=== PATIENT | female | born 1980 | race American Indian/Alaskan Native ===

== ENCOUNTER 2016-07-26 08:46 | Day surgery (SDC) | payer SELFPAY ==
[2016-07-26 10:31] LABS: Bacteria,Urine 1+ /HPF (Negative); Bilirubin,Urine NEG (Negative); Blood,Urine NEG (Negative); Ketones,Urine NEG (Negative); Leukocyte Esterase,Urine NEG (Negative); Mucus,Urine FEW /HPF; Nitrite,Urine NEG (Negative); Protein,Urine <15 mg/dL mg/dL (Negative); Urobilinogen,Urine < 2.0 mg/dL (<2.0)
--- NOTE | 2016-07-26 11:41 | Cat Scan Report ---
CT OF THE ABDOMEN AND PELVIS WITHOUT CONTRAST HISTORY: Tender mass in left inguinal region, left lower quadrant abdominal pain. TECHNIQUE: Helical CT without contrast. Sagittal and coronal reformatted images. FINDINGS: No comparison. A 4.1 x 3.1 cm well circumscribed fluid density mass is identified in the left inguinal region. Internal density measures 14 Hounsfield units. This appears to represent fluid. This may represent fluid within a small left femoral/inguinal hernia sac. No aggressive mass or adenopathy is suspected on noncontrast CT. A 3.7 cm left ovarian cyst is identified. The uterus and right ovary are unremarkable. Within the limits of a noncontrast exam, the remaining abdominal and pelvic viscera are within normal limits. The liver, biliary system, pancreas, spleen, kidneys, adrenal glands and bladder are unremarkable. The bowel loops are normal caliber and wall thickness. Normal appendix. The aorta is normal caliber. No ascites, bulky adenopathy or inflammatory changes. The lung bases are clear. Normal heart size. No suspicious bony lesion. IMPRESSION: 3.7 cm left ovarian cyst. 4.1 x 3.1 cm fluid density cystic structure in the left inguinal region as outlined above. I suspect this may represent a small amount of fluid within a small hernia sac. Ultrasound may further define this structure is cystic versus solid if needed.
--- NOTE | 2016-07-26 12:49 | Ultrasound Report ---
ULTRASOUND EXTREMITY NONVASCULAR LEFT History: Left groin mass, left inguinal mass. Findings: Compared to the recent noncontrast CT abdomen and pelvis performed the same day. Ultrasound also demonstrates a predominantly cystic lesion in the left groin soft tissues measuring 3.8 x 3.2 x 4.0 cm. There is a small amount of fat echogenicity substance which is presumably omentum at the base of this cystic structure. The remainder of the fluid is anechoic. This also suggests a small inguinal hernia containing fluid. This does not appear to represent a lymph node, aggressive mass or abscess. Please correlate with the patient. Impression: Probable small left inguinal hernia containing ascitic fluid. See above.
[2016-07-26 14:19] LABS: Basophils % (Auto) 0.6 % (0.0-1.8); Eosinophils % (Auto) 0.4 % (0.0-4.3); Hematocrit 37.2 % (30.3-42.9); Hemoglobin 12.7 gm/dl (10.1-14.3); Mean Corpuscular HGB Conc 34 % (30-34); Mean Corpuscular Hemoglobin 31 pg (28-32); Mean Corpuscular Volume 91 fl (79-97); Platelet Count 231 K/mm3 (140-440); Red Blood Count 4.09 M/mm3 (3.65-5.03); Red Cell Distribution Width 13.6 % (13.2-15.2)
[2016-07-26] MEDS ORDERED: MORPHINE IV ONE (14:19)
[2016-07-26 14:32] LABS: Anion Gap 16 mmol/L; Blood Urea Nitrogen 6 mg/dL (7-17); Calcium 8.9 mg/dL (8.4-10.2); Carbon Dioxide 23 mmol/L (22-30); Chloride 101.6 mmol/L (98-107); Glucose 83 mg/dL (65-100); Potassium 3.4 mmol/L (3.6-5.0); Sodium 137 mmol/L (137-145)
[2016-07-26] MEDS ORDERED: NACL 0.9% 1000 ML 1,000 ML IV ONE (14:32)
[2016-07-26] MEDS ORDERED: XYLOCAINE 1% MPF 5 mL INFILTRATI ONE (14:33)
--- NOTE | 2016-07-26 14:38 | Admit Criteria Form ---
Admission Criteria Documentation: ABDOMINAL PAIN Clinical Indications for Admission to Inpatient Care (Place 'X' for any and all applicable criteria): Admission is indicated for ANY ONE of the following(1)(2)(3)(4)(5): [X]I. Inpatient admission required rather than observation care (Also use Abdominal Pain: Observation Care, as appropriate) because of ANY ONE of the following: [ ]a) Severe pain requiring acute inpatient management [X]b) Identification of etiology/finding that requires inpatient care (eg, aortic dissection, free air) [ ]c) Absent bowel sounds with complete ileus(6) [ ]d) Suspected toxic megacolon [ ]e) Severe electrolyte abnormalities requiring inpatient care [ ]f) High fever or infection requiring inpatient admission as indicated by ANY ONE of following(7)(8): [ ] i) Appropriate outpatient or observational care antimicrobial treatment unavailable, not effective, or not feasible [ ] ii) Documented bacteremia [ ] iii) Temperature > 104.9 degrees F (oral) [ ] iv) T >103.1 F (oral) or < 96.8 F(rectal) that does not respond to all emergency treatment measures [ ]g) Signs of intestinal obstruction [B] [ ]h) Hemodynamic instability [ ]i) IV fluid to replace significant ongoing losses (greater than 3 L/m2 per day) (12)(13) [ ]j) Percutaneous or open drainage (eg, abscess, biliary tract ) procedures [ ]k) Parenteral nutrition regimen that must be implemented on inpatient basis [ ]l) Other condition,treatment or monitoring requiring inpatient admission. [ ]II. Peritoneal signs present [X]III. Surgery needed that cannot be performed on an ambulatory basis. [ ]IV. Evaluation requires patient to not eat or drink for extended period ( eg, more than 24 hours). [ ]V. Contraindications and/or Inappropriate clinical situations for Observational Care in patients with abdominal pain, when ANY ONE of the following is required: [ ]a) Thorough evaluation is required to prevent catastrophic events due to delays in diagnosing (e.g.Mesenteric ischemia) 1,3 [ ]b) Patient with severe pathology or with chronic symptoms unlikely to improve in the ED stay (3) [ ]. General contraindications and/or Inappropriate clinical situations for Observational Care in patients with abdominal pain, when ANY ONE of the following is required: [ ]a) Prediction of prolongation of LOS based on ANY ONE of the following may be considered as a contraindication for observational care 2, 3, 4, 5, 6, 7, 8, 9, 10, 11 [ ]i) Age > 65 yrs. [ ]ii) Patient arriving by ambulance [ ]iii) Patient with high acuity [ ]iv) Patient requiring vital sign monitoring [ ]v) Patient on IV medication [ ]b) Systolic blood pressures 180mmHg 3,12 [ ]c) Patient with altered mental status including delirium and other alteration of consciousness, (3) [ ]d) Patient whose discharge disposition will be to a custodial home or rehabilitation home should not be managed in Emergency Department Observation Unit. CMS rule requires 3 days hospital stay before such placement.3,13 [ ]e) Patient with failure to thrive due to broad array of etiologies 3,16,17 [ ]f) Inability to ambulate 3,14 Extended stay beyond goal length of stay may be needed for(2)(3): [ ]a) Persistent abdominal pain with suspected intra-abdominal process [ ]b) Diagnosed condition requiring continued stay (e.g., pancreatitis, complicated diverticulitis) [ ]c) Surgery (e.g., colectomy) The original [employer] [facility] content created by [employer] has been revised. The portions of the content which have been revised are identified through the use of italic text or in bold, and [facility] has neither reviewed nor approved the modified material.All other unmodified content is copyright [employer] [facility]. Please see references footnoted in the original [employer] [facility] edition 2016 Admission Criteria Met: Yes
--- NOTE | 2016-07-26 14:53 | Emergency Department Report ---
Entered by AAYNA CASTRO, acting as scribe for BISI GÓMEZ PA. Abscess Boil HPI - HPI Chief Complaint: Skin/Abscess/Foreign Body Stated Complaint: LT SIDE ABD PAIN Duration: 1 Day Location: Other (left groin area) Severity: Moderate (6/10) History: Yes Pain (left groin), No Fever, No Purulent Drainage, No Numbness, No Foreign Body, No Previous History, No Insect Bite HPI: 35 year old female with no significant PMHx presents to the ED c/o an abscess on left groin area that began 1 year ago, worsening yesterday. Patient states the abscess started off small 1 year ago, but increased in size yesterday. Rates intermittent pain a 6/10 in severity and descibes it as tight in quality. Denies purulent drainage, erythema, numbness, tinlging, fever, chills, nausea, vomiting, and abdominal pain. Denies applying OTC topical medicine. LMP 07/04/2016. NKDA. Allergies/Adverse Reactions: Allergies Allergy/AdvReac Type Severity Reaction Status Date / Time No Known Allergies Allergy Unverified 07/26/16 08:59 ED Review of Systems ROS: Stated complaint: LT SIDE ABD PAIN Other details as noted in HPI Comment: All other systems reviewed and negative Constitutional: denies: chills, fever, other (tingling and purulent drainage) Respiratory: denies: orthopnea, shortness of breath, SOB with exertion, SOB at rest, stridor Cardiovascular: denies: chest pain, dyspnea on exertion, orthopnea Gastrointestinal: other (left suprapubic pain). denies: abdominal pain, nausea , vomiting Genitourinary: denies: urgency, dysuria, frequency, discharge Skin: other (mass on left groin area with associated pain). denies: rash Neurological: denies: numbness ED Past Medical Hx - Surgical History Additional Surgical History: appendix - Social History Smoking Status: Current Every Day Smoker Substance Use Type: None ED Abscess Boil Physical Exam - Exam General: Vital signs noted. No distress. General: Patient is alert and oriented x 3. No apparent distress, normal gait, atraumatic. Size: >5 cm (6 cm mass on left groin) Exam: Yes Tenderness (left groin area aound 6 cm mass), Yes Normal Neurologic Exam, Yes Normal Circulation, No Fluctuance, No Surrounding Cellulites/Erythema , No Lymphangitis, No Crepitation, No Heart Murmur Exam: HEAD: Head is normocephalic and atraumatic. EYES: Extraocular movements are intact. Pupils are equal, round, and reactive to light and accommodation. EARS: Symmetrical, atraumatic. NOSE: Nose symmetrical, nontender. Nares appeared normal. MOUTH:Mouth is well hydrated and without lesions. Mucous membranes are moist. NECK: Supple. No lymphadenopathy. LUNGS: Symmetrical with respiration. No wheezing, rales or crackles, CTAB. HEART: Regular rate and rhythm with normal S1/S2 present. No murmurs, rubs, or gallops. ABDOMEN: Soft, nondistended. Nontender to palpation on all quadrants. Positive bowel sounds. EXTREMITIES/MUSCULOSKELETAL: No cyanosis, clubbing, rash, lesions or edema. SKIN: Warm and dry. No lesions, ulceration or induration present. 6 cm non-erythematous mass on left groin with associated tenderness present. NEUROLOGIC: No focal deficit. PSYCHIATRIC: Mood is congruent with affect. ED Course Vital Signs 07/26/16 09:00 Temperature 98.0 F Pulse Rate 76 Respiratory 16 Rate Blood Pressure 124/78 O2 Sat by Pulse 99 Oximetry - Consultations Consultation #1: Dr. Amaro the surgeon on-call was contacted and case was discussed with him. He states he will come invalid patient and see if she is a candidate for surgery. 07/26/16 13:39 Consultation #2: Dr. Amaro came in to see and evaluate the patient with myself present. Inguinal hernia was not reducible. patient will be taken to surgery. 07/26/16 14:40 Critical care attestation.: If time is entered above; I have spent that time in minutes in the direct care of this critically ill patient, excluding procedure time. ED Medical Decision Making - Lab Data Result diagrams: 07/26/16 13:48 07/26/16 13:48 - Radiology Data Radiology results: report reviewed, image reviewed Ordering Physician: MELISA TERRELL Date of Service: 07/26/16 Procedure(s): CT abdomen pelvis wo con Accession Number(s): [id number] cc: MELISA TERRELL CT OF THE ABDOMEN AND PELVIS WITHOUT CONTRAST HISTORY: Tender mass in left inguinal region, left lower quadrant abdominal pain. TECHNIQUE: Helical CT without contrast. Sagittal and coronal reformatted images. FINDINGS: No comparison. A 4.1 x 3.1 cm well circumscribed fluid density mass is identified in the left inguinal region. Internal density measures 14 Hounsfield units. This appears to represent fluid. This may represent fluid within a small left femoral/inguinal hernia sac. No aggressive mass or adenopathy is suspected on noncontrast CT. A 3.7 cm left ovarian cyst is identified. The uterus and right ovary are unremarkable. Within the limits of a noncontrast exam, the remaining abdominal and pelvic viscera are within normal limits. The liver, biliary system, pancreas, spleen, kidneys, adrenal glands and bladder are unremarkable. The bowel loops are normal caliber and wall thickness. Normal appendix. The aorta is normal caliber. No ascites, bulky adenopathy or inflammatory changes. The lung bases are clear. Normal heart size. No suspicious bony lesion. IMPRESSION: 3.7 cm left ovarian cyst. 4.1 x 3.1 cm fluid density cystic structure in the left inguinal region as outlined above. I suspect this may represent a small amount of fluid within a small hernia sac. Ultrasound may further define this structure is cystic versus solid if needed. Transcribed By: TTR Dictated By: YINKA SAMSON JR, MD Electronically Authenticated By: YINKA SAMSON JR, MD Signed Date/Time: 07/26/16 1134 - Medical Decision Making 35-year-old female presents with a left inguinal hernia/UTI ED course: UPT, UA ordered. UPT UA shows CT of abdomen and pelvis ordered. CT impressions outlined above. Ultrasound ordered. Ultrasound shows left inguinal hernia containing a side ascitic fluid Consent is a patient. Discussed case with surgeon personal shopper Dr. Amaro who came and evaluated the patient. Patient will be taken to surgery for hernia repair. Labs ordered. IV fluid started. Patient administered 500 mg of Rocephin IV. Patient given 4 mg of morphine. Discussed findings with patient. Discussed patient she will be taken up to surgery for hernia repair. Patient verbally states she understands. Patient's will call Her to come into the ER. ED Disposition Clinical Impression: Left inguinal hernia UTI (urinary tract infection) Qualifiers: Urinary tract infection type: acute cystitis Hematuria presence: with hematuria Qualified Code(s): N30.01 - Acute cystitis with hematuria Disposition: OP ADMITTED IP TO THIS HOSP Is pt being admited?: Yes Does the pt Need Aspirin: No Condition: Stable Referrals: PRIMARY CARE,MD [Primary Care Provider] - 3-5 Days This documentation as recorded by the MATTHEW mckay JASMINE,accurately reflects the service I personally performed and the decisions made by me,BISI GÓMEZ PA.
[2016-07-26] MEDS ORDERED: ROCEPHIN 500 MG in NACL 0.9% 50 ML IV NR (15:00)
[2016-07-26] MEDS ORDERED: ZEMURON IV ONE (15:45)
[2016-07-26] MEDS ORDERED: DIPRIVAN 10 MG/ML IV ONE (15:45)
[2016-07-26] MEDS ORDERED: XYLOCAINE MPF 2% ONE (15:45)
[2016-07-26] MEDS ORDERED: DILAUDID ONE ×2 (15:45→17:21)
[2016-07-26] MEDS ORDERED: VERSED ONE (16:03)
[2016-07-26] MEDS ORDERED: ANCEF/STERILE WATER 2 GM/20 ML IV NR (16:04)
[2016-07-26] MEDS ORDERED: PEPCID IV ONE (16:04)
--- NOTE | 2016-07-26 16:05 | Anesthesia Consultation ---
Anesthesia Consult and Med Hx - Airway Anesthetic Teeth Evaluation: Good ROM Head & Neck: Adequate Mental/Hyoid Distance: Adequate Mallampati Class: Class II Intubation Access Assessment: Good - Pulmonary Exam CTA: Yes - Cardiac Exam Cardiac Exam: RRR - Pre-Operative Health Status ASA Pre-Surgery Classification: ASA2 Proposed Anesthetic Plan: General (no previous anesthesia problems) - Pulmonary Hx Smoking: Yes (2cigarettes per week)
--- NOTE | 2016-07-26 16:05 | Anesthesia Day of Surgery ---
Anesthesia Day of Surgery - Day of Surgery Patient Examined: Yes Patient H&P Reviewed: Yes Patient is NPO: Yes (coffee 09)
[2016-07-26 16:07] LABS: INR 1.04 (0.87-1.13)
[2016-07-26 16:08] LABS: Partial Thromboplastin Time 30.1 Sec. (24.2-36.6)
[2016-07-26] MEDS ORDERED: MARCAINE 0.5% 30 ML INFILTRATI ONE (16:30)
[2016-07-26] MEDS ORDERED: XYLOCAINE 1% 20 mL ONE (16:30)
[2016-07-26] MEDS ORDERED: TORADOL ONE (16:35)
[2016-07-26] MEDS ORDERED: ROBINUL ONE ×2 (16:35→16:51)
[2016-07-26] MEDS ORDERED: ZOFRAN ONE ×2 (16:35→18:46)
[2016-07-26] MEDS ORDERED: NEOSTIGMINE ONE (16:35)
[2016-07-26] MEDS ORDERED: MARCAINE 0.5% INFILTRATI ONE (16:43)
[2016-07-26] MEDS ORDERED: XYLOCAINE 1% 20 mL INFILTRATI ONE (16:43)
[2016-07-26] MEDS ORDERED: NACL 0.9% IR ONE (16:43)
[2016-07-26] MEDS ORDERED: NACL 0.9% 1000 ML 1,000 ML ONE (16:49)
--- NOTE | 2016-07-26 17:03 | Discharge Summary ---
Short Stay Discharge Plan Activity: advance as tolerated, no driving until cleared by PCP Diet: regular Wound: per your surgeon's advice Follow up with: PRIMARY CARE, [Primary Care Provider] - 3-5 Days
[2016-07-26] MEDS ORDERED: NORCO 5/325 PO PRN (17:06)
--- NOTE | 2016-07-26 17:06 | Discharge Summary ---
Short Stay Discharge Plan Follow up with: PRIMARY CARE, [Primary Care Provider] - 3-5 Days
[2016-07-26] MEDS: DILAUDID IV PRN ×4 (17:28→18:10)
--- NOTE | 2016-07-26 18:08 | Post Anesthesia Evaluation ---
- Post Anesthesia Evaluation Patient Participated: Yes Airway Patent: Yes Stable Respiratory Function: Yes Nausea/Vomiting: No Temp > 96.8F: Yes Pain Manageable: Yes Adequeate Hydration: Yes Anesthesia Complications: No
[2016-07-26] MEDS ORDERED: NORCO 10/325 PO PRN (18:24)
[2016-07-26] MEDS ORDERED: ZOFRAN IV PRN (18:52)
[2016-07-26] MEDS ORDERED: REGLAN IV PRN (19:00)
[2016-07-26 19:15] VITALS: BP 110/78
--- NOTE | 2016-07-26 22:47 | Discharge Summary ---
FINAL DIAGNOSIS: Left femoral hernia that turned out to be a left incarcerated femoral hernia, nothing within the hernial sac, just a small piece of the omentum. HOSPITAL COURSE: The patient came to the ER because of severe pain to the area with a mass and that the area about 5 x 5 x 4 cm. It was very tender, I tried to reduce that to no avail. So she came to the OR for definitive surgical intervention, where she underwent exploration of the area, excision of hernial sac, and closure of the canal between the conjoined tendon and ilioinguinal ligament interruptedly with use of 2-0 Ethibond, the same thing to the fascia and subcutaneous tissue with 2-0 Vicryl and skin with elmira. The patient was then transferred to the recovery room in good condition. She was given a prescription for [employer] (P). To see me in office in about 10 days. JOB# [id number] PHIL/ERLINDA CARR
--- NOTE | 2016-07-27 01:38 | Operative Report ---
PREOPERATIVE DIAGNOSIS: Left inguinal mass. POSTOPERATIVE DIAGNOSIS: Left femoral hernia. SURGERY: Exploration of the mass, left inguinal area with repair of femoral hernia. ANESTHESIA: General. BLOOD LOSS: Minimal. FINDINGS: The patient had a hernia in the femoral canal and deep to the ilioinguinal ligament. This measured about 5 x 5 x 5 cm. The mass is about a 1.5 x 1.5 cm. I was able to open the hernial sac and there is a small piece of the omentum stuck. This was handled with a suture ligature x 2 of 2-0 Ethibond. DESCRIPTION OF PROCEDURE: With the patient in supine position, after cleansing and draped in usual fashion, I made the incision in the left inguinal area deep subcutaneous tissue all the way down to fascia. I could see the hernial sac deep to the ilioinguinal ligament, so I have to transect it to reach and then it was opened. It was suture ligated at its neck with the use of 2-0 Ethibond x 2. Then, the repair was performed by attaching the ilioinguinal ligament to the conjoint tendon inferiorly and posteriorly. This was done with interrupted stitches of 2-0 Ethibond. We were well satisfied. We had good hemostasis. Then, the fascia was closed with continuous stitch of the same. Subcutaneous tissue with 2-0 Vicryl and elmira for the skin. The patient was then transferred to the recovery room in good condition. JOB# [id number] PHIL/ERLINDA
== END 2016-07-26 19:29 | disposition home or self-care (01) ==
LOC: ED 08:46 → OR 15:00
PROVIDERS: ATTEND Emergency Medicine
DX: K41.90 Unilateral femoral hernia, without obstruction or gangrene, not specified as recurrent (principal); F17.210 Nicotine dependence, cigarettes, uncomplicated; Z98.890 Other specified postprocedural states
CPT/HCPCS: 36415; 49550; 74176; 76881; 80048; 81001; 81025; 85025; 85610; 85730; 86850; 86900; 86901; 88302; J0690; J1170; J1885; J2250; J2270; J2405; J2704; J2710; J2765; J7030